=== PATIENT | female | born 2000 | race Hispanic/Latino ===

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

== ENCOUNTER 2021-09-29 13:31 | Emergency (ER) | payer OTHER ==
[~2021-09-29] VITALS: Ht 160 cm; Wt 78.3 kg
[~2021-09-29 13:31] MED LIST changes: +FIORICET PO
[2021-09-29 15:03] VITALS: BP 110/78
== END 2021-09-29 15:16 | disposition home or self-care (01) ==
LOC: ED 13:31
DX: Z20.822 Contact with and (suspected) exposure to COVID-19 (principal)

== ENCOUNTER 2021-11-05 15:51 | Emergency (ER) | payer OTHER ==
[~2021-11-05] VITALS: Ht 160 cm; Wt 76.4 kg
[2021-11-05 17:22] VITALS: BP 125/77
== END 2021-11-05 17:36 | disposition home or self-care (01) ==
LOC: ED 15:51
DX: J06.9 Acute upper respiratory infection, unspecified (principal); Z20.822 Contact with and (suspected) exposure to COVID-19